=== PATIENT | male | born 1975 | race Caucasian/White ===

== ENCOUNTER 2019-04-13 11:21 | Emergency (ER) | payer MEDICAID ==
[~2019-04-13] VITALS: Ht 175.3 cm; Wt 69.0 kg
--- NOTE | 2019-04-13 13:17 | NUR ---
PT AMB WITH STEADY GAIT TO RESTROOM FOR UA SAMPLE
--- NOTE | 2019-04-13 14:26 | NUR ---
RECTAL EXAM AND HEMOCCULT PER PROVIDER. PATIENT TOLERATED WELL.
[2019-04-13 15:01] LABS: OCCULT BLOOD STOOL NEGATIVE (Neg)
[2019-04-13 15:14] VITALS: BP 144/89
== END 2019-04-13 15:22 | disposition home or self-care (01) ==
LOC: ER 11:22
DX: N50.811 Right testicular pain (principal); N50.82 Scrotal pain
CPT/HCPCS: 76870; 82272; 99284

== ENCOUNTER 2022-11-30 10:06 | Outpatient (CLI) | payer MEDICAID ==
[~2022-11-30 10:06] MED LIST: diatr meglu/diatrizoate 30ml oral sol.-(3 dose) bottle ONE
== END 2022-11-30 23:59 | disposition home or self-care (01) ==
LOC: RAD 10:06
PROVIDERS: ATTEND Family Medicine
DX: K57.30 Diverticulosis of large intestine without perforation or abscess without bleeding (principal); K61.0 Anal abscess
CPT/HCPCS: 74018; 74176; Q9963